=== PATIENT | female | born 1930 | race Caucasian/White ===

== ENCOUNTER 2016-06-19 14:37 | Inpatient (IN) | payer OTHER, MEDICARE ==
[~2016-06-19] VITALS: Ht 160 cm; Wt 74.8 kg
--- NOTE | ~2016-06-19 | EKG ---
[address] [place] [address] ELECTROCARDIOGRAM REPORT Name: RACHAEL SNELL Room #: 407-P ADM IN M.R.#: [id number] Admission: 06/19/16 Attend Phys: Charles Guillory MD Discharge: Date of : 30 Report #: [id number] THIS REPORT FOR: //name// [facility] ED Test Date: 2016-06-19 Test Time: 15:47:52 Pat Name: RACHAEL SNELL Department: Room: 407 Gender: F Tableau Report Developer: JESSICA : 1930 Requested By: Berenice Russo Order Number: [id number] MD: Kana Watson Measurements Intervals [place] Rate: 87 P: 68 HI: 143 QRS: -35 QRSD: 86 T: 64 QT: 366 QTc: 441 Interpretive Statements Sinus rhythm Left axis deviation Abnormal R-wave progression, early transition No previous ECG available for comparison Electronically Signed On 06-20-2016 8:08:35 IMPERSONATOR CHARACTER by Kana Watson [email or web address] <ELECTRONICALLY SIGNED> By: Kana Watson MD 06/20/1608 1547 [id number] Kana Watson MD /DAGMAR
--- NOTE | ~2016-06-19 | D ---
[facility] [place] [address] DISCHARGE SUMMARY Name: RACHAEL SNELL Room #: 407-P [facility] IN M.R.#: [id number] Admission: 06/19/16 Attend Phys: Charles Guillory MD Discharge: 06/23/16 Date of : 30 Report #: [id number] THIS REPORT FOR: //name// CC: Charles Brink DATE OF SERVICE: 06/22/2016 TYPE OF DICTATION: Discharge summary. After tzum-ez-xptz encounter, I did see the patient and examined her on the day of discharge, 06/22/2016. DISCHARGE DIAGNOSES: 1. Urinary tract infection. 2. Sigmoid diverticulitis. 3. Gastroesophageal reflux disease. 4. Hypertension. 5. Anemia. 6. Glaucoma. 7. Gallstones, asymptomatic. 8. Large hiatal hernia. 9. Depression. DISCHARGE MEDICATIONS: See discharge summary. HOSPITAL COURSE: The patient was admitted to the hospital secondary to a course of 2 days symptoms of intermittent abdominal pain and nausea. The patient was found to have diverticulitis and UTI. She was started on IV antibiotic in the form of Flagyl and Cipro, with some pain control and GI was consulted to see the patient. The patient was seen by the GI and they recommended to continue full liquid diet and advance the diet as tolerated, continue the Flagyl and the Cipro. They recommended also colonoscopy done as an outpatient. Dr. Ross did see the patient and is said that there were gallstones, but not symptomatic. The patient also has a large hiatal hernia. So, on the day of discharge, the patient was stable and she is going home on the above-mentioned medicines, to continue a total course for Cipro and Flagyl of 10 days and to follow with the primary care doctor in 6 weeks and colonoscopy with GI. <ELECTRONICALLY SIGNED> By: Geoff Adams MD 06/23/16 1708 [id number] Geoff Adams MD /nt
[~2016-06-19 14:37] MED LIST: DEPRESSION MED; ULTRAM 50MG TAB50 MG PO; [UNRECOGNIZED DRUG - REMARK]
[2016-06-19 14:48] VITALS: BP 169/129
[2016-06-19 15:44] LABS: URINE BILIRUBIN NEGATIVE (Negative); URINE BLOOD TRACE (Negative); URINE COLOR YELLOW; URINE GLUCOSE-RANDOM* NEGATIVE (Negative); URINE KETONES 1+ (Negative); URINE LEUKOCYTES-REFLEX 1+ (Negative); URINE PROTEIN (DIPSTICK) NEGATIVE (Negative); URINE SPECIFIC GRAVITY 1.025 (1.003-1.035); URINE UROBILINOGEN 0.2 E.U./dl (0.2-1.0)
[2016-06-19 15:50] LABS: ABSOLUTE NEUTROPHILS 7.5 thou/uL (1.4-8.2); EOSINOPHILS 1.8 % (0.0-3.0); HEMATOCRIT 33.7 % (37.0-47.0); LYMPHOCYTES 12.9 % (24.0-44.0); MCH 28.7 pg (26.0-34.0); MCHC 32.7 % (28.0-37.0); MCV 87.8 fL (80.0-100.0); MONOCYTES 6.7 % (1.0-8.0); PLATELET COUNT 279 thou/uL (150-400); POLYS 77.6 % (36.0-66.0); RBC 3.84 mil/uL (4.20-5.00); RDW 15.1 % (10.5-14.5); WBC 9.7 thou/uL (4.0-11.0)
[2016-06-19 15:53] LABS: CALCIUM 8.7 mg/dL (8.5-10.1); CREATININE 0.9 mg/dL (0.6-1.3); POTASSIUM 3.7 mmol/L (3.5-5.1)
[2016-06-19 15:54] LABS: MANUAL DIFF NO
[2016-06-19 15:56] LABS: SQUAMOUS 0-3 Few /LPF (0-3)
[2016-06-19 15:57] LABS: CASTS None Seen /LPF (None Seen); CRYSTALS None Seen /LPF (None Seen); URINE RBC 3-10 Few /HPF (0-2)
[2016-06-19] MEDS ORDERED: COSOPT OCUMETER10 M1 OP (15:58)
[2016-06-19] MEDS ORDERED: TRAMADOL 50 MG50 MG PO (15:58)
[2016-06-19] MEDS ORDERED: FLEXERIL PO (15:58)
[2016-06-19] MEDS ORDERED: BRIMONIDINE TAR15 M1 OP (15:58)
[2016-06-19] MEDS ORDERED: TRAVATAN Z2.5 ML OPHTHALMIC (15:58)
[2016-06-19 15:59] LABS: ALBUMIN 3.2 g/dL (3.4-5.0); TOTAL BILIRUBIN 0.6 mg/dL (<0.1-1.0); TOTAL PROTEIN 6.8 g/dL (6.4-8.2)
[2016-06-19 19:30] VITALS: BP 187/92
[2016-06-19 20:00] VITALS: BP 139/81
[2016-06-20 06:00] VITALS: BP 128/75
[2016-06-20 16:00] VITALS: BP 143/76
[2016-06-20 20:00] VITALS: BP 125/60
[2016-06-21 04:00] VITALS: BP 140/56
[2016-06-21 06:19] LABS: HEMATOCRIT 29.6 % (37.0-47.0); HEMOGLOBIN 9.3 gm/dL (12.0-15.0); MCH 28.5 pg (26.0-34.0); MCHC 31.6 % (28.0-37.0); MCV 90.5 fL (80.0-100.0); RBC 3.28 mil/uL (4.20-5.00); RDW 14.8 % (10.5-14.5); WBC 5.3 thou/uL (4.0-11.0)
[2016-06-21 06:46] LABS: CREATININE 0.9 mg/dL (0.6-1.3)
[2016-06-21 08:00] VITALS: BP 133/9
[2016-06-21 16:00] VITALS: BP 114/47
[2016-06-21 20:45] VITALS: BP 130/73
[2016-06-22 04:45] VITALS: BP 101/46
[2016-06-22 05:48] LABS: BASOPHILS 1.2 % (0.0-2.0); EOSINOPHILS 5.4 % (0.0-3.0); HEMOGLOBIN 9.5 gm/dL (12.0-15.0); MCH 28.9 pg (26.0-34.0); MCHC 32.6 % (28.0-37.0); MCV 88.5 fL (80.0-100.0); MONOCYTES 11.1 % (1.0-8.0); PLATELET COUNT 226 thou/uL (150-400); POLYS 41.3 % (36.0-66.0); RBC 3.28 mil/uL (4.20-5.00); RDW 14.8 % (10.5-14.5); WBC 4.8 thou/uL (4.0-11.0)
[2016-06-22 05:50] LABS: MANUAL DIFF NO
[2016-06-22 06:08] LABS: ALBUMIN 2.5 g/dL (3.4-5.0); CALCIUM 8.2 mg/dL (8.5-10.1); POTASSIUM 4.1 mmol/L (3.5-5.1); TOTAL BILIRUBIN 0.2 mg/dL (<0.1-1.0); TOTAL PROTEIN 5.8 g/dL (6.4-8.2)
[2016-06-22 09:39] VITALS: BP 130/69
[2016-06-22 13:26] VITALS: BP 130/69
[2016-06-22 13:38] VITALS: BP 130/69
[2016-06-22 16:00] VITALS: BP 140/77
[2016-06-22 20:00] VITALS: BP 129/58
[2016-06-23 04:00] VITALS: BP 124/79
[2016-06-23 06:20] LABS: ABSOLUTE NEUTROPHILS 2.5 thou/uL (1.4-8.2); BASOPHILS 1.2 % (0.0-2.0); EOSINOPHILS 4.6 % (0.0-3.0); HEMATOCRIT 32.1 % (37.0-47.0); HEMOGLOBIN 10.3 gm/dL (12.0-15.0); LYMPHOCYTES 32.3 % (24.0-44.0); MCH 28.5 pg (26.0-34.0); MCHC 32.1 % (28.0-37.0); MONOCYTES 11.2 % (1.0-8.0); PLATELET COUNT 235 thou/uL (150-400); POLYS 50.7 % (36.0-66.0)
[2016-06-23 06:27] LABS: MANUAL DIFF NO
[2016-06-23 06:34] LABS: CALCIUM 8.4 mg/dL (8.5-10.1); POTASSIUM 3.9 mmol/L (3.5-5.1)
[2016-06-23 08:00] VITALS: BP 131/69
[2016-06-23] MEDS ORDERED: CIPRO500 MG PO (10:41)
[2016-06-23] MEDS ORDERED: FLAGYL500 MG PO (10:41)
[2016-06-23] MEDS ORDERED: PROTONIX 20 MG20 M1 PO (10:41)
[2016-06-23] MEDS ORDERED: AMLODIPINE BESYL5 M1 PO (10:41)
[2016-06-23 10:45] VITALS: BP 130/69
== END 2016-06-23 11:19 | disposition home health service (06) | DRG 871 ==
LOC: ER 14:37 → EROBS 17:41 → 4N 17:41 → EROBS 17:46 → 4N 19:42
PROVIDERS: Family Medicine; Hospitalist; Physician Assistant; Specialist
DX: A41.9 Sepsis, unspecified organism (principal); R65.21 Severe sepsis with septic shock; E43 Unspecified severe protein-calorie malnutrition; K57.32 Diverticulitis of large intestine without perforation or abscess without bleeding; N39.0 Urinary tract infection, site not specified; N17.9 Acute kidney failure, unspecified; Z90.710 Acquired absence of both cervix and uterus; K21.9 Gastro-esophageal reflux disease without esophagitis; F32.9 Major depressive disorder, single episode, unspecified; Z98.890 Other specified postprocedural states; H40.9 Unspecified glaucoma; D64.9 Anemia, unspecified; K44.9 Diaphragmatic hernia without obstruction or gangrene; F17.210 Nicotine dependence, cigarettes, uncomplicated; I10 Essential (primary) hypertension; Z79.2 Long term (current) use of antibiotics; Z68.29 Body mass index [BMI] 29.0-29.9, adult
CPT/HCPCS: 10091